=== PATIENT | female | born 1980 | race Caucasian/White ===

== ENCOUNTER 2017-07-04 18:59 | Emergency (ER) | payer OTHER ==
[~2017-07-04] VITALS: Ht 157.5 cm; Wt 79.7 kg
[~2017-07-04 18:59] MED LIST: ALPRAZOLAM1 MG PO; BACTRIM; CELEXA40 MG PO; DOXYCYCLINE HY100 M1 PO; ESCITALOPRAM OX10 MG PO; FLAGYL500 MG PO; KEFLEX; MOTRIN800 MG PO; SUBOXONE 8 MG-1 EAC2 SL; TOPIRAMATE100 MG PO; TRAMADOL
[2017-07-04 20:04] LABS: ADD MIUA? YES; BILIRUBIN SMALL; BLOOD NEGATIVE; COLOR AMBER ((YELLOW)); GLUCOSE (STRIP) NEGATIVE; KETONES 5; LEUKOCYTES NEGATIVE; NITRITE NEGATIVE; PROTEIN (STRIP) 30; SPECIFIC GRAVITY 1.039 (1.000-1.030)
[2017-07-04 20:07] LABS: BACTERIA RARE /HPF; EPITHELIAL CELLS RARE /HPF; HYALINE CASTS 20-30 /LPF; MUCUS 1+ /LPF; RED BLOOD CELLS 0-5 /HPF (0-5); UCUL ADDED? NO; WHITE BLOOD CELLS 0-5 /HPF (0-5)
[2017-07-04 20:09] LABS: INTERNAL CONTROL VALID? YES
[2017-07-04] MEDS ORDERED: DIAZEPAM5 MG PO (20:15)
[2017-07-04] MEDS ORDERED: MEDROL DOSEPAK4 MG PO (21:07)
[2017-07-04] MEDS ORDERED: MOBIC7.5 MG PO (21:07)
[2017-07-04] MEDS ORDERED: SKELAXIN800 MG PO (21:07)
[2017-07-04 21:23] VITALS: BP 106/63
[2017-07-05 13:36] LABS: CHLAMYDIA TRACHOMATIS NEGATIVE; NEISSERIA GONORRHOEAE NEGATIVE
== END 2017-07-04 21:25 | disposition home or self-care (01) ==
LOC: EME 18:59
PROVIDERS: Physician Assistant
DX: S16.1XXA Strain of muscle, fascia and tendon at neck level, initial encounter (principal); S39.012A Strain of muscle, fascia and tendon of lower back, initial encounter; V49.40XA Driver injured in collision with unspecified motor vehicles in traffic accident, initial encounter; N89.8 Other specified noninflammatory disorders of vagina; F17.210 Nicotine dependence, cigarettes, uncomplicated
CPT/HCPCS: 72050; 72100; 81003; 84703; 87210; 87491; 87591; 99281; 99284

== ENCOUNTER 2018-01-28 17:58 | Emergency (ER) | payer OTHER ==
[~2018-01-28] VITALS: Ht 157.5 cm; Wt 84.3 kg
[~2018-01-28 17:58] MED LIST changes: +DIAZEPAM5 MG PO; +MEDROL DOSEPAK4 MG PO; +MOBIC7.5 MG PO; +SKELAXIN800 MG PO
[2018-01-28 18:34] LABS: APPEARANCE SL.HAZY ((CLEAR)); BILIRUBIN SMALL; BLOOD NEGATIVE; COLOR AMBER ((YELLOW)); GLUCOSE (STRIP) NEGATIVE; KETONES 5; LEUKOCYTES SMALL; NITRITE POSITIVE; PROTEIN (STRIP) 100; SPECIFIC GRAVITY 1.035 (1.000-1.030)
[2018-01-28 18:53] LABS: HEMATOCRIT 40.9 % (36.0-46.0); HEMOGLOBIN 14.1 G/DL (11.9-15.5); MCH 29.3 PG (29.0-34.0); MCHC 34.5 G/DL (30.0-36.0); RBC DIS.WIDTH-CV 12.3 % (11.8-14.6); RBC DIS.WIDTH-SD 38.1 % (39-53); RED BLOOD COUNT 4.81 M/uL (3.80-5.20); WHITE BLOOD COUNT 10.8 K/uL (4.1-10.2)
[2018-01-28 19:04] LABS: CHLORIDE 106 mEq/L (99-109); POTASSIUM 3.9 mEq/L (3.7-5.4); SODIUM 136 mEq/L (136-147)
[2018-01-28 19:06] LABS: GLUCOSE 76 mg/dL (70-99)
[2018-01-28 19:10] LABS: CREATININE 0.8 mg/dL (0.6-1.3); GFR ESTIMATE (CALCULATED) > 59 mL/min/
[2018-01-28 19:11] LABS: UREA NITROGEN (BUN) 15 mg/dL (9-23)
[2018-01-28 19:19] LABS: QUANTITATIVE HCG < 4.0 MIU/ML
[2018-01-28 19:35] LABS: PLAT.SUFFICIENCY ADEQUATE; PLATELET COUNT 271 K/uL (156-360)
[2018-01-28 19:49] LABS: RED BLOOD CELLS 0-5 /HPF (0-5)
[2018-01-28 19:50] LABS: AMORPHOUS URATES CRYSTALS 1+; BACTERIA 4+ /HPF; EPITHELIAL CELLS 2+ /HPF; MUCUS 4+ /LPF
[2018-01-28 19:55] LABS: THYROTROPIN (TSH) 4.1 MIU/L (0.4-5.5)
[2018-01-28] MEDS ORDERED: MACROBID100 MG PO (19:55)
[2018-01-28 20:13] VITALS: BP 118/65
== END 2018-01-28 20:21 | disposition home or self-care (01) ==
LOC: EME 17:58
PROVIDERS: Physician Assistant
DX: N39.0 Urinary tract infection, site not specified (principal); F32.9 Major depressive disorder, single episode, unspecified; F17.200 Nicotine dependence, unspecified, uncomplicated; Z79.891 Long term (current) use of opiate analgesic; Z98.51 Tubal ligation status; Z88.8 Allergy status to other drugs, medicaments and biological substances
CPT/HCPCS: 80048; 81003; 84443; 84702; 85027; 99281; 99284

== ENCOUNTER → 2018-02-02 15:03 | Emergency (ER) | payer OTHER ==
[~2018-02-02] VITALS: Ht 160 cm; Wt 85.6 kg
[~2018-02-02 15:03] MED LIST changes: +MACROBID100 MG PO
[2018-02-02 15:08] VITALS: BP 101/61
== END | disposition left against medical advice (07) ==
LOC: EME 15:03
DX: R53.1 Weakness (principal); R11.0 Nausea; Z53.21 Procedure and treatment not carried out due to patient leaving prior to being seen by health care provider

== ENCOUNTER 2018-03-05 13:44 | Emergency (ER) | payer OTHER ==
[~2018-03-05] VITALS: Ht 157.5 cm; Wt 85.4 kg
[2018-03-05 14:11] LABS: APPEARANCE SL.HAZY ((CLEAR)); BILIRUBIN NEGATIVE; BLOOD NEGATIVE; COLOR YELLOW ((YELLOW)); GLUCOSE (STRIP) NEGATIVE; KETONES NEGATIVE; LEUKOCYTES LARGE; NITRITE NEGATIVE; PROTEIN (STRIP) NEGATIVE; SPECIFIC GRAVITY 1.021 (1.000-1.030); UROBILINOGEN 0.2 MG/DL (0.2-1.0)
[2018-03-05 14:16] LABS: HEMATOCRIT 43.4 % (36.0-46.0); HEMOGLOBIN 14.6 G/DL (11.9-15.5); MCH 29.4 PG (29.0-34.0); MCHC 33.6 G/DL (30.0-36.0); MCV 87.3 FL (83-99); RBC DIS.WIDTH-CV 13.1 % (11.8-14.6); RBC DIS.WIDTH-SD 42.1 % (39-53); RED BLOOD COUNT 4.97 M/uL (3.80-5.20); WHITE BLOOD COUNT 13.4 K/uL (4.1-10.2)
[2018-03-05 14:24] LABS: ALBUMIN 4.1 g/dL (3.2-4.8); CHLORIDE 104 mEq/L (99-109); POTASSIUM 5.1 mEq/L (3.7-5.4); SODIUM 139 mEq/L (136-147)
[2018-03-05 14:26] LABS: GLUCOSE 98 mg/dL (70-99)
[2018-03-05 14:27] LABS: TOTAL PROTEIN 8.1 g/dL (6.4-8.3)
[2018-03-05 14:28] LABS: TOTAL BILIRUBIN 0.2 mg/dL (0.0-1.0)
[2018-03-05 14:28] LABS: BACTERIA RARE /HPF; EPITHELIAL CELLS RARE /HPF; MUCUS TRACE /LPF; UCUL ADDED? YES; WHITE BLOOD CELLS TNTC /HPF (0-5)
[2018-03-05 14:30] LABS: ALKALINE PHOSPHATASE 88 IU/L (3-129); CREATININE 0.8 mg/dL (0.6-1.3); GFR ESTIMATE (CALCULATED) > 59 mL/min/
[2018-03-05 14:31] LABS: UREA NITROGEN (BUN) 15 mg/dL (9-23)
[2018-03-05 14:32] LABS: AST (GOT) 20 IU/L (2-34)
[2018-03-05 14:33] LABS: ALT (GPT) 18 IU/L (3-49)
[2018-03-05 14:39] LABS: QUANTITATIVE HCG < 4.0 MIU/ML
[2018-03-05 14:54] LABS: HEMATOLOGY COMMENT 1 SN; PLAT.SUFFICIENCY ADEQUATE; PLATELET COUNT 367 K/uL (156-360)
[2018-03-05 14:55] LABS: LIPASE 20 U/L (1.0-51.0)
[2018-03-05 16:48] LABS: SOURCE SWAB
[2018-03-05] MEDS ORDERED: KEFLEX500 MG PO (17:22)
[2018-03-05 17:50] VITALS: BP 116/69
== END 2018-03-05 17:51 | disposition home or self-care (01) ==
LOC: EME 13:44
PROVIDERS: Physician Assistant
DX: N39.0 Urinary tract infection, site not specified (principal); F32.9 Major depressive disorder, single episode, unspecified; F17.200 Nicotine dependence, unspecified, uncomplicated; Z88.8 Allergy status to other drugs, medicaments and biological substances
CPT/HCPCS: 80053; 81003; 83690; 84702; 85027; 87077; 87086; 87186; 87210; 87491; 87591; 99281; 99283; J0696